=== PATIENT | male | born 1980 | race Caucasian/White ===

== ENCOUNTER 2016-06-09 10:52 | Emergency (ER) | payer SELFPAY ==
[2016-06-09 11:22] LABS: APPEARANCE TURBID (CLEAR); BILIRUBIN NEGATIVE (NEGATIVE); COLOR YELLOW (YELLOW); GLUCOSE NEGATIVE (NEGATIVE); KETONE NEGATIVE (NEGATIVE); LEUKOCYTE ESTERASE TRACE (NEGATIVE); NITRITE NEGATIVE (NEGATIVE); PROTEIN TRACE mg/dL (NEGATIVE); SPECIFIC GRAVITY 1.015 (1.005-1.020); UROBILINOGEN NORMAL (NORMAL)
[2016-06-09 11:24] LABS: WHITE CELLS - URINE RARE /hpf (0-5)
[2016-06-09 11:25] LABS: AMORPHOUS SEDIMENT >1+ /lpf (NONE SEEN); RED CELLS - URINE >50 /hpf (0-5)
== END 2016-06-09 13:27 | disposition home or self-care (01) ==
LOC: D.ER 10:52
PROVIDERS: Emergency Medicine
DX: R10.9 Unspecified abdominal pain (principal); R31.9 Hematuria, unspecified; N21.1 Calculus in urethra; F17.200 Nicotine dependence, unspecified, uncomplicated